=== PATIENT | female | born 1970 | race American Indian/Alaskan Native ===

== ENCOUNTER 2017-06-12 23:05 | Emergency (ER) | payer OTHER ==
[2017-06-12 23:37] VITALS: BP 136/74; PULSE 84; RESP 18; TEMP 99.3; O2SAT 99
--- NOTE | 2017-06-13 00:18 | ED PDOC ---
Arrival/HPI - General Chief Complaint: ENT Problem Time Seen by Provider: 06/12/17 23:51 Historian: Patient - History of Present Illness Narrative History of Present Illness (Text): 06/13/17 00:14 47yo female with PMhx of hypertension who present with complaint of sore throat x 2weeks. States throat pain improved and then started again. she notes pain with swallowing. denies dysphagia, nausea, abdominal pain, neck pain. any other complaint. Past Medical History - Provider Review Nursing Documentation Reviewed: Yes - Psychiatric Hx Substance Use: No Family/Social History - Physician Review Nursing Documentation Reviewed: Yes Family/Social History: Unknown Family HX Smoking Status: no Hx Alcohol Use: No Hx Substance Use: No Allergies/Home Meds Allergies/Adverse Reactions: Allergies No Known Allergies Allergy (Verified 06/12/17 23:37) Review of Systems - Physician Review All systems were reviewed & negative as marked: Yes - Review of Systems Constitutional: Normal Eyes: Normal ENT: Sore Throat Respiratory: Normal Cardiovascular: Normal Gastrointestinal: Normal Genitourinary Female: Normal Musculoskeletal: Normal Skin: Normal Neurological: Normal Endocrine: Normal Hemo/Lymphatic: Normal Psychiatric: Normal Physical Exam Vital Signs Reviewed: Yes Vital Signs Temp Pulse Resp BP Pulse Ox 06/12/17 23:31 99.3 F 84 18 136/74 99 Temperature: Afebrile Blood Pressure: Normal Pulse: Regular Respiratory Rate: Normal Appearance: Positive for: Well-Appearing, Non-Toxic, Comfortable Pain Distress: None Mental Status: Positive for: Alert and Oriented X 3 - Systems Exam Head: Present: Atraumatic, Normocephalic Pupils: Present: PERRL Extroacular Muscles: Present: EOMI Conjunctiva: Present: Normal Mouth: Present: Moist Mucous Membranes Pharnyx: Present: ERYTHEMA, TONSILS ENLARGED, Peritonsilar Swelling, Other ( Right submandibular node tender and palpable). No: EXUDATE, Uvular Deviation, Muffled/Hoarse Voice, Strider, Soft Palate/Uvular Edema Neck: Present: Normal Range of Motion Respiratory/Chest: Present: Clear to Auscultation, Good Air Exchange. No: Respiratory Distress, Accessory Muscle Use Cardiovascular: Present: Regular Rate and Rhythm, Normal S1, S2. No: Murmurs Abdomen: No: Tenderness, Distention, Peritoneal Signs Back: Present: Normal Inspection Upper Extremity: Present: Normal Inspection. No: Cyanosis, Edema Lower Extremity: Present: Normal Inspection. No: Edema Neurological: Present: GCS=15, CN II-XII Intact, Speech Normal Skin: Present: Warm, Dry, Normal Color. No: Rashes Psychiatric: Present: Alert, Oriented x 3, Normal Insight, Normal Concentration Medical Decision Making - Medication Orders Current Medication Orders: Discontinued Medications Dexamethasone (Decadron Inj) 10 mg IM STAT STA Stop: 06/13/17 00:05 Penicillin V Potassium (Penicillin Vk Tab) 500 mg PO STAT STA PRN Reason: Protocol Stop: 06/13/17 00:05 Disposition/Present on Arrival - Present on Arrival Any Indicators Present on Arrival: No History of DVT/PE: No History of Uncontrolled Diabetes: No Urinary Catheter: No History of Decub. Ulcer: No History Surgical Site Infection Following: None - Disposition Have Diagnosis and Disposition been Completed?: Yes Diagnosis: Acute tonsillitis Disposition: HOME/ ROUTINE Disposition Time: 00:20 Patient Plan: Discharge Condition: STABLE Discharge Instructions (ExitCare): Sore Throat, Adult (DC) Additional Instructions: Follow up with your Doctor Return to ED for any new or worsening symptoms Prescriptions: Penicillin VK [Penicillin VK Tab] 250 mg PO Q6H #28 tab Referrals: [facility] [Outside] - Follow up with primary
== END 2017-06-13 00:45 | disposition home or self-care (01) ==
LOC: MERGE 23:05 → ED 23:05
DX: J03.90 Acute tonsillitis, unspecified (principal)
CPT/HCPCS: 96372; 99282; J1100